=== PATIENT | female | born 1955 | race Caucasian/White ===

== ENCOUNTER 2019-10-28 02:10 | Emergency (ER) | payer BC ==
[2019-10-28] MEDS ORDERED: Ondansetron 4 MG/2 ML SDV IVPUSH ONE (02:21)
[2019-10-28] MEDS ORDERED: Sodium Chloride 0.9% 10 ML Syringe FLUSH PRN (02:21)
[2019-10-28] MEDS ORDERED: Sodium Chloride 0.9% 1,000 ML IV ONE (02:21)
[2019-10-28] MEDS ORDERED: HYDROmorphone 1 MG/ML Syringe IVPUSH ONE (02:22)
--- NOTE | 2019-10-28 02:27 | EDM.PDOC ---
ED HPI GENERAL MEDICAL PROBLEM - General Chief Complaint: Abdominal Pain Stated Complaint: Abdominal pain, N/V Time Seen by Provider: 10/28/19 02:15 Source of Information: Reports: Patient History Limitations: Reports: No Limitations - History of Present Illness INITIAL COMMENTS - FREE TEXT/NARRATIVE: Pt. presents to ER with complaints of epigastric/upper abdominal discomfort with radiation into the upper back. Pt. states that the discomfort started around 9 PM tonight shortly after eating fried chicken. She states that she started feeling bloated in her upper abdomen and then the discomfort started. She states the the discomfort has been constant. Pt. is extremely nauseated and has been vomiting. Pt. states that this is the first time she has had discomfort like this in the past. Pt. denies any shortness of breath. No palpitations. discomfort does not radiate into the chest or arms. Denies any light-colored stool or dark urine. Denies any fever or chills. Pt. is an ex-smoker (quit 1998) and a non-drinker. Denies any excessive use of NSAIDS. She does have a history of GERD. Denies any burning in her throat or acidic taste. Onset Date: 10/27/19 Duration: Constant Location: Reports: Abdomen, Back Quality: Reports: Sharp, Throbbing Severity: Severe Associated Symptoms: Reports: Loss of Appetite, Nausea/Vomiting. Denies: Confusion, Chest Pain, Cough, cough w sputum, Diaphoresis, Fever/Chills, Headaches, Malaise, Rash, Shortness of Breath, Syncope, Weakness mid abdominal pain Pain Score (Numeric/FACES): 8 - Related Data Allergies Allergy/AdvReac Type Severity Reaction Status Date / Time No Known Allergies Allergy Verified 10/28/19 02:20 Home Meds: Home Meds traZODone HCl [Trazodone HCl] 50 mg PO BEDTIME 10/28/19 [History] ED ROS GENERAL - Review of Systems Review Of Systems: See Below Constitutional: Reports: No Symptoms HEENT: Reports: No Symptoms Respiratory: Reports: No Symptoms Cardiovascular: Reports: No Symptoms Endocrine: Reports: No Symptoms GI/Abdominal: Reports: Abdominal Pain, Decreased Appetite, Nausea, Vomiting. Denies: Black Stool, Bloody Stool, Diarrhea, Difficulty Swallowing, Distension, Hematemesis, Hematochezia, Melena : Reports: No Symptoms Musculoskeletal: Reports: No Symptoms Skin: Reports: No Symptoms Neurological: Reports: No Symptoms Psychiatric: Reports: No Symptoms Hematologic/Lymphatic: Reports: No Symptoms Immunologic: Reports: No Symptoms ED EXAM, GENERAL - Physical Exam Exam: See Below Exam Limited By: No Limitations General Appearance: Alert, WD/WN, Anxious, Moderate Distress Throat/Mouth: Normal Lips, Normal Voice, No Airway Compromise Head: Atraumatic, Normocephalic Respiratory/Chest: No Respiratory Distress, Lungs Clear, Normal Breath Sounds, No Accessory Muscle Use, Chest Non-Tender Cardiovascular: Normal Peripheral Pulses, Regular Rate, Rhythm, No Edema, No Gallop, No Murmur Peripheral Pulses: 4+: Radial (L) GI/Abdominal: Normal Bowel Sounds, Soft, Tender (Epigastric pain, not exacerbated with palpation. No increase in pain on palpation of the McBurney point. No guarding. No masses. No rebound tenderness.) Course - Vital Signs Last Recorded V/S: Last Vital Signs Temp 36.5 C 10/28/19 02:10 Pulse 56 L 10/28/19 02:10 Resp 16 10/28/19 02:10 BP 157/74 H 10/28/19 02:10 Pulse Ox 97 10/28/19 02:10 - Orders/Labs/Meds Orders: Active Orders 24 hr Category Date Time Status EKG Documentation Completion [RC] STAT Care 10/28/19 02:20 Ordered Sodium Chloride 0.9% [Saline Flush] Med 10/28/19 02:21 Ordered 10 ml FLUSH ASDIRECTED PRN Peripheral IV Insertion Adult [OM.PC] Routine Oth 10/28/19 02:21 Ordered Medication Orders Sodium Chloride (Saline Flush) 10 ml FLUSH ASDIRECTED PRN PRN Reason: Keep Vein Open Labs: Laboratory Tests 10/28/19 10/28/19 10/28/19 Range/Units 02:38 02:38 02:38 WBC 9.3 (4.0-10.0) x10^3/uL RBC 4.72 (4.00-5.50) x10^6/uL Hgb 14.4 (12.0-16.0) g/dL Hct 40.8 (33.0-47.0) % MCV 86.4 (78.0-93.0) fL MCH 30.5 (26.0-32.0) pg MCHC 35.3 (32.0-36.0) g/dL RDW Coeff of Farzad 11.8 (10.0-15.0) % Plt Count 284 (130-400) x10^3/uL Neut % (Auto) 78.4 (50.0-80.0) % Lymph % (Auto) 17.1 L (25.0-50.0) % Trigg % (Auto) 4.1 (2.0-11.0) % Eos % (Auto) 0.2 (0.0-4.0) % Baso % (Auto) 0.2 (0.2-1.2) % PT 10.1 (9.5-12.3) SEC INR 0.9 L (2.0-3.5) Sodium 138 (136-145) mmol/L Potassium 3.6 (3.5-5.1) mmol/L Chloride 99 (98-107) mmol/L Carbon Dioxide 28 (21-32) mmol/L Anion Gap 14.6 (10-20) mmol/L BUN 21 H (7-18) mg/dL Creatinine 1.0 (0.55-1.02) mg/dL Est Cr Clr Drug Dosing 49.08 mL/min Estimated GFR (MDRD) 56 Glucose 159 H (74-106) mg/dL Calcium 9.8 (8.5-10.1) mg/dL Corrected Calcium 9.64 (8.5-10.1) mg/dL Total Bilirubin 0.6 (0.2-1.0) mg/dL AST 30 (15-37) U/L ALT 45 (14-59) U/L Alkaline Phosphatase 74 (46-116) U/L Troponin I < 0.017 (<=0.056) ng/mL C-Reactive Protein 0.4 (<=0.9) mg/dL Total Protein 8.0 (6.4-8.2) g/dL Albumin 4.2 (3.4-5.0) g/dL Globulin 3.8 Albumin/Globulin Ratio 1.11 Amylase 67 (25-115) U/L Lipase 188 (73-393) U/L Meds: Medications Generic Name Dose Route Start Last Admin Trade Name Freq PRN Reason Stop Dose Admin Sodium Chloride 10 ml 10/28/19 02:21 Saline Flush FLUSH ASDIRECTED PRN Keep Vein Open Discontinued Medications Generic Name Dose Route Start Last Admin Trade Name Aris PRN Reason Stop Dose Admin Hydrocodone Bitart/Acetaminophen 1 packet 10/28/19 03:25 10/28/19 03:30 Take Home: Acetam/Hydrocodon 325-5 Mg, 5 Pack PO 10/28/19 03:26 1 packet ONETIME ONE Administration Hydromorphone HCl 1 mg 10/28/19 02:22 10/28/19 02:41 Dilaudid IVPUSH 10/28/19 02:23 1 mg ONETIME ONE Administration Sodium Chloride 1,000 mls @ 1,000 mls/hr 10/28/19 02:21 10/28/19 02:38 Normal Saline IV 10/28/19 03:20 1,000 mls/hr .BOLUS ONE Administration Ketorolac Tromethamine 15 mg 10/28/19 02:28 10/28/19 02:55 Toradol IVPUSH 10/28/19 02:29 15 mg ONETIME ONE Administration Ondansetron HCl 4 mg 10/28/19 02:21 10/28/19 02:39 Zofran IVPUSH 10/28/19 02:22 4 mg ONETIME ONE Administration Ondansetron HCl 1 packet 10/28/19 03:25 10/28/19 03:30 Take Home: Ondansetron Odt 4 Mg, 2 Tab Pack PO 10/28/19 03:26 1 packet ONETIME ONE Administration - Re-Assessments/Exams Free Text/Narrative Re-Assessment/Exam: Pt. was given dilaudid 1 mg IV, toradol 15mg IV, and zofran 4 mg IV, as well as a liter of NS. Pt. reported near complete resolution of her symptoms. Departure - Departure Time of Disposition: 03:33 Disposition: Home, Self-Care 01 Clinical Impression: Epigastric pain - Discharge Information Instructions: Acetaminophen; Hydrocodone tablets or capsules, Ondansetron oral dissolving tablet, Cholelithiasis, Ifmf-do-Oyle, Gallbladder Eating Plan Referrals: PCP,Unobtain [Primary Care Provider] - Forms: ED Department Discharge Additional Instructions: Home to rest. You will be contacted today for an ultrasound appointment. It will either be today or Friday. I will forward the results to Dr. Gillespie. [place] 5/325mg 1 every 4-6 hours as needed for pain Ibuprofen 200mg 3 tabs every 6-8 hours as needed for pain Zofran ODT 4mg 1 every 6 hours for nausea. Recheck in clinic in 5-7 days, sooner if not gradually improving. Sepsis Event Note (ED) - Focused Exam Vital Signs: Vital Signs Temp Pulse Resp BP Pulse Ox 10/28/19 02:10 36.5 C 56 L 16 157/74 H 97 - Problem List Review Problem List Initiated/Reviewed/Updated: Yes - My Orders Last 24 Hours: My Active Orders 10/28/19 02:20 EKG Documentation Completion [RC] STAT 10/28/19 02:21 Sodium Chloride 0.9% [Saline Flush] 10 ml FLUSH ASDIRECTED PRN Peripheral IV Insertion Adult [OM.PC] Routine - Assessment/Plan Last 24 Hours: My Active Orders 10/28/19 02:20 EKG Documentation Completion [RC] STAT 10/28/19 02:21 Sodium Chloride 0.9% [Saline Flush] 10 ml FLUSH ASDIRECTED PRN Peripheral IV Insertion Adult [OM.PC] Routine Plan: Gallbladder US ordered for either today or Friday. Results will be forwarded to Dr. Gillespie. Discussed findings with patient. Presentation is most consistent with cholecystitis. Pt. was advised to avoid fatty foods and was given discharge information on foods to avoid. She was given a short course of [place] 5'325mg with instructions to take one every 4-6 hours as needed for pain, in addition to ibuprofen as needed. She was also given a course of zofran ODT for nausea. Follow-up in clinic in 5-7 days, sooner if not gradually improving. Again, ultrasound report and ER report will be forwarded to PCP. All questions were answered.
[2019-10-28] MEDS ORDERED: Ketorolac 15 MG/ML SDV IVPUSH ONE (02:28)
[2019-10-28 03:16] LABS: ANION GAP 14.6 mmol/L (10-20); CHLORIDE,CL 99 mmol/L (98-107); SODIUM,NA 138 mmol/L (136-145)
[2019-10-28] MEDS ORDERED: Take Home: Acetaminophen/HYDROcodone 325-5 MG, 5 Tab Pack PO ONE (03:25)
[2019-10-28] MEDS ORDERED: Take Home: Ondansetron 4 MG Tab.DIS, 2 Tab Pack PO ONE (03:25)
== END 2019-10-28 03:57 | disposition home or self-care (01) ==
LOC: VM.ED 02:10
DX: R10.13 Epigastric pain (principal); Z79.899 Other long term (current) drug therapy
CPT/HCPCS: 80053; 82150; 83690; 84484; 85025; 85610; 86140; 93005; 96361; 96374; 96375; 99284-25; 99284-GF; A9270-GY; J1170; J1885; J2405; J7030

== ENCOUNTER 2020-12-11 11:29 | Emergency (ER) | payer BC ==
[2020-12-11 12:11] LABS: PTT,PARTIAL THROMBOPLSTIN TIME 26.3 SEC (25.6-32.8)
[2020-12-11 12:14] LABS: CHLORIDE,CL 101 mmol/L (98-107); SODIUM,NA 140 mmol/L (136-145)
--- NOTE | 2020-12-11 12:15 | EDM.PDOC ---
ED HPI GENERAL MEDICAL PROBLEM - General Chief Complaint: Neuro Symptoms/Deficits Stated Complaint: confusion Time Seen by Provider: 12/11/20 11:30 Source of Information: Reports: Patient, Other History Limitations: Reports: No Limitations - History of Present Illness INITIAL COMMENTS - FREE TEXT/NARRATIVE: Patient brought in via coworkers secondary to being at work on a Zoom meeting and noticed she was not acting right with repetitive word phrases and disorientation confusion last known well was 10:30 AM at work. Per her boyfriend Amilcar she was normal this morning when he left to go to work and she left to go to work and everything was normal as of last night Initial presentation the patient had a slight aphasic episode then started having repetitive phrases and questions such as where am I at why am I here , Why am I wearing these clothes I do not only is clothes, where is Amilcar Initial exam vital signs noted hypertension 180/100 Patient alert and oriented to 3 would follow all commands no pronator drift no facial drooping equal facial sensation answers questions appropriately but then goes right back into repetitive phrases Associated Symptoms: Reports: No Other Symptoms, Confusion. Denies: Headaches - Related Data Allergies Allergy/AdvReac Type Severity Reaction Status Date / Time No Known Allergies Allergy Verified 10/28/19 02:20 Home Meds: Home Meds traZODone HCl [Trazodone HCl] 50 mg PO BEDTIME 10/28/19 [History] Past Medical History - Past Health History Medical/Surgical History: Denies Medical/Surgical History ED ROS GENERAL - Review of Systems Review Of Systems: See Below Constitutional: Reports: No Symptoms HEENT: Reports: No Symptoms Respiratory: Reports: No Symptoms Cardiovascular: Reports: No Symptoms Endocrine: Reports: No Symptoms GI/Abdominal: Reports: No Symptoms : Reports: No Symptoms Musculoskeletal: Reports: No Symptoms Skin: Reports: No Symptoms Neurological: Denies: Dizziness, Headache, Numbness, Paresthesia, Pre-Existing Deficit, Syncope, Tremors, Trouble Speaking, Difficulty Walking, Weakness, Change in Speech Psychiatric: Reports: No Symptoms Hematologic/Lymphatic: Reports: No Symptoms Immunologic: Reports: No Symptoms ED EXAM, NEURO - Physical Exam Exam: See Below Exam Limited By: No Limitations General Appearance: Alert, WD/WN, No Apparent Distress Eye Exam: Bilateral Eye: EOMI, Normal Inspection, PERRL Ears: Normal External Exam, Normal Canal, Hearing Grossly Normal, Normal TMs Nose: Normal Inspection, Normal Mucosa, No Blood Throat/Mouth: Normal Inspection, Normal Lips, Normal Teeth, Normal Gums, Normal Oropharynx, Normal Voice, No Airway Compromise Head Exam: Atraumatic, Normocephalic Neck: Normal Inspection, Supple, Non-Tender, Full Range of Motion Respiratory/Chest: No Respiratory Distress, Lungs Clear, Normal Breath Sounds, No Accessory Muscle Use, Chest Non-Tender Cardiovascular: Normal Peripheral Pulses, Regular Rate, Rhythm, No Edema, No Gallop, No JVD, No Murmur, No Rub GI/Abdominal: Normal Bowel Sounds, Soft, Non-Tender, No Organomegaly, No Distention Neurological: Alert, Normal Mood/Affect, Normal Dorsiflexion, CN II-XII Intact, Normal Plantar Flexion, Normal Gait, Normal Reflexes, No Motor/Sensory Deficits, Oriented x 3, Straight Leg Raise (L), Straight Leg Raise (R). No: Abnormal Finger to Nose, Abnormal Sensation, Abnormal Light Touch, Abnormal Motor Back Exam: Normal Inspection, Full Range of Motion Extremities: Normal Inspection, Normal Range of Motion, Non-Tender, No Pedal Edema, Normal Capillary Refill Psychiatric: Normal Mood, Anxious. No: Normal Affect Skin Exam: Warm, Dry, Intact, Normal Color, No Rash #1 Interpretation EKG Date: 12/11/20 Time: 11:25 Rhythm: NSR Ogema: Normal P-Wave: Present QRS: Normal ST-T: Normal QT: Normal Course - Vital Signs Text/Narrative:: Patient was seen as soon as she come to the door NIH score of 0 cranial nerves II through XII are intact she has equal dinkey brakeman bilateral equal facial sensation bilateral 5-5 upper lower extremity bilateral CT head no acute findings Spoke with Dr. JUNIOR neurology at this time with NIH stroke score 0 he does not recommend TPA may be possible transient amnesia and patient needs further work-up he is willing to accept transfer the patient for further work-up to [place] [id number] [place] was signed a paper instead of computer - Orders/Labs/Meds Orders: Active Orders 24 hr Category Date Time Status Head wo Cont [CT] Stat Exams 12/11/20 12:05 Ordered DRUG SCREEN, URINE [URCHEM] Stat Lab 12/11/20 12:20 Ordered UA RFX ARAM AND CULT IF INDIC [URIN] Stat Lab 12/11/20 12:21 Received Labs: Laboratory Tests 12/11/20 12/11/20 12/11/20 Range/Units 11:45 11:45 11:45 WBC 7.3 (4.0-10.0) x10^3/uL RBC 4.49 (4.00-5.50) x10^6/uL Hgb 13.7 (12.0-16.0) g/dL Hct 39.5 (33.0-47.0) % MCV 88.0 (78.0-93.0) fL MCH 30.5 (26.0-32.0) pg MCHC 34.7 (32.0-36.0) g/dL RDW Coeff of Farzad 11.9 (10.0-15.0) % Plt Count 268 (130-400) x10^3/uL PT 10.4 (9.9-12.5) SEC INR 0.9 L (2.0-3.5) APTT 26.3 (25.6-32.8) SEC Sodium 140 (136-145) mmol/L Potassium 3.6 (3.5-5.1) mmol/L Chloride 101 (98-107) mmol/L Carbon Dioxide 28 (21-32) mmol/L Anion Gap 14.6 (5-15) mmol/L BUN 22 H (7-18) mg/dL Creatinine 0.7 (0.55-1.02) mg/dL Est Cr Clr Drug Dosing TNP Estimated GFR (MDRD) > 60 Glucose 121 H (70-99) mg/dL Calcium 9.1 (8.5-10.1) mg/dL Troponin I High Sens 6 (<=51) ng/L Departure - Departure Time of Disposition: 12:10 Disposition: DC/Tfer to [facility] Condition: Good Clinical Impression: CVA (cerebrovascular accident) - Discharge Information *PRESCRIPTION DRUG MONITORING PROGRAM REVIEWED*: No *COPY OF PRESCRIPTION DRUG MONITORING REPORT IN PATIENT SANKET: No Referrals: Rizwana Gillespie MD [Primary Care Provider] - Forms: ED Department Discharge - Problem List & Annotations (1) CVA (cerebrovascular accident) SNOMED Code(s): 742705920 Code(s): I63.9 - CEREBRAL INFARCTION, UNSPECIFIED Status: Acute Current Visit: No - My Orders Last 24 Hours: My Active Orders 12/11/20 12:05 Head wo Cont [CT] Stat 12/11/20 12:20 DRUG SCREEN, URINE [URCHEM] Stat 12/11/20 12:21 UA RFX ARAM AND CULT IF INDIC [URIN] Stat - Assessment/Plan Last 24 Hours: My Active Orders 12/11/20 12:05 Head wo Cont [CT] Stat 12/11/20 12:20 DRUG SCREEN, URINE [URCHEM] Stat 12/11/20 12:21 UA RFX ARAM AND CULT IF INDIC [URIN] Stat
[2020-12-11 12:17] LABS: ANION GAP 14.6 mmol/L (5-15)
[2020-12-11 12:32] LABS: BARBITURATE SCREEN,URINE NEGATIVE (NEGATIVE); BENZODIAZEPINES SCREEN,URINE NEGATIVE (NEGATIVE); BUPRENORPHINE SCREEN,URINE NEGATIVE (NEGATIVE); METHAMPHETAMINE SCREEN, URINE NEGATIVE (NEGATIVE); THC SCREEN,URINE 50 NG/ML NEGATIVE (NEGATIVE)
--- NOTE | 2020-12-11 13:12 | CT ---
[id number] CT/CT Head WO IV EXAM: CT Head WO IV CLINICAL DATA: POSSIBLE STROKE COMPARISON: No previous similar exam is available for comparison. FINDINGS: There is no mass or mass effect. There is no hemorrhage or hydrocephalus. There are no extra-axial fluid collections. There are no sites of abnormal attenuation. IMPRESSION: NO PLAIN CT EVIDENCE OF ACUTE INTRACRANIAL PROCESS. Alexander Chawla MD 12/11/20 [id number] Thank you for allowing us to participate in the care of your patient.
== END 2020-12-11 12:31 | disposition critical access hospital (66) ==
LOC: VM.ED 11:29
DX: I63.9 Cerebral infarction, unspecified (principal)
CPT/HCPCS: 70450; 80048; 80305-QW; 81001; 82947; 84484; 85027; 85610; 85730; 87086; 93010; 99284; 99285-25